=== PATIENT | female | born 1955 | race Caucasian/White ===

== ENCOUNTER 2017-05-26 07:39 | Emergency (ER) | payer MEDICAID ==
--- NOTE | 2017-05-26 09:10 | RADIOLOGY REPORT (SQ) ---
EXAM DESCRIPTION: CERV SP 3 VIEW OR LESS COMPLETED DATE/TIME: 05/26/2017 8:53 am REASON FOR STUDY: fall, pain COMPARISON: None. NUMBER OF VIEWS: Three views. TECHNIQUE: AP, lateral and odontoid radiographic images acquired of the cervical spine. LIMITATIONS: Limited visualization inferior to C6. FINDINGS: Disc space narrowing and osteophyte formation C5-6 and C6- 7. Grade 1 anterolisthesis of C4 relative to C5. No prevertebral swelling. IMPRESSION: Cervical disc disease. Malalignment. TECHNICAL DOCUMENTATION: JOB ID: [id number] [employer]- All Rights Reserved
--- NOTE | 2017-05-26 09:16 | RADIOLOGY REPORT (SQ) ---
EXAM DESCRIPTION: KNEE LEFT 4 VIEW COMPLETED DATE/TIME: 05/26/2017 8:53 am REASON FOR STUDY: fall, pain COMPARISON: None. NUMBER OF VIEWS: Four views. TECHNIQUE: AP, lateral, and both oblique radiographic images acquired of the left knee. LIMITATIONS: None. FINDINGS: Cortical defects along the medial margin of the femoral component of total knee arthroplas ty. Irregular medial margin of the tibial component. No displaced fracture. IMPRESSION: Probable degenerative change however cannot exclude nondisplaced fracture medial distal femur. TECHNICAL DOCUMENTATION: JOB ID: [id number] [employer]- All Rights Reserved
--- NOTE | 2017-05-26 09:20 | RADIOLOGY REPORT (SQ) ---
EXAM DESCRIPTION: T SPINE AP/LAT COMPLETED DATE/TIME: 05/26/2017 8:53 am REASON FOR STUDY: fall, pain COMPARISON: Thoracic spine plain films same date NUMBER OF VIEWS: Two views. TECHNIQUE: AP and lateral radiographic images acquired of the thoracic spine. LIMITATIONS: None. FINDINGS: MINERALIZATION: Osteopenic ALIGNMENT: Normal. No scoliosis. VERTEBRAE: No fracture or bone lesion. Maintained height, normal segmentation. DISCS: Multilevel disc space loss of height with bulky anterior and rightward thoracic osteophytes. HARDWARE: None in the spine. MEDIASTINUM AND SOFT TISSUES: Normal heart size and aortic contour. No soft tissue abnormality. VISUALIZED LUNG BARKER: Clear. OTHER: No other significant finding. IMPRESSION: No acute findings TECHNICAL DOCUMENTATION: JOB ID: [id number] [employer]- All Rights Reserved
--- NOTE | 2017-05-26 09:30 | RADIOLOGY REPORT (SQ) ---
EXAM DESCRIPTION: SHOULDER LEFT 2 OR MORE VIEWS COMPLETED DATE/TIME: 05/26/2017 8:53 am REASON FOR STUDY: fall, pain COMPARISON: None. NUMBER OF VIEWS: Three views. TECHNIQUE: Internal rotation, external rotation, and Y view images acquired of the left shoulder. LIMITATIONS: None. FINDINGS: Intact reverse shoulder arthroplasty. No acute fracture. Visualize lungs are clear. IMPRESSION: NO RADIOGRAPHIC EVIDENCE OF ACUTE INJURY. TECHNICAL DOCUMENTATION: JOB ID: [id number] [employer]- All Rights Reserved
--- NOTE | 2017-05-26 09:34 | ER Document Report ---
ED Fall - General Chief Complaint: Fall Stated Complaint: FALL Time Seen by Provider: 05/26/17 08:11 Mode of Arrival: Wheelchair Information source: Patient Notes: Patient is a 62-year-old female who presents to the ER today for tiredness, left hip pain, left knee pain, left shoulder pain and neck pain after a fall yesterday afternoon. Patient states that she tripped over the cord to a portable fan in her room yesterday and fell mainly on her left side. She does not remember if she hit her head or she lost consciousness. She denies any nausea or vomiting, blurred vision. Daughter states that she has been mildly confused and very tired which is unlike the patient. Patient has had a left shoulder replacement and is concerned about that joint. Patient is not on any blood thinners. TRAVEL OUTSIDE OF THE [place] IN LAST 30 DAYS: No - Related data Allergies/Adverse Reactions: No Known Allergies Allergy (Verified 05/26/17 07:48) Past Medical History - General Information source: Patient - Social History Smoking Status: Unknown if Ever Smoked Patient has suicidal ideation: No Patient has homicidal ideation: No Renal/ Medical History: Denies: Hx Peritoneal Dialysis Past Surgical History: Reports: Hx Orthopedic Surgery Review of Systems - Review of Systems Constitutional: No symptoms reported EENT: No symptoms reported Cardiovascular: No symptoms reported Respiratory: No symptoms reported Gastrointestinal: No symptoms reported Genitourinary: No symptoms reported Female Genitourinary: No symptoms reported Musculoskeletal: See HPI Skin: No symptoms reported Hematologic/Lymphatic: No symptoms reported Neurological/Psychological: See HPI Physical Exam - Vital signs Vitals: Temp Pulse Resp BP Pulse Ox 97.6 F 71 16 148/79 H 99 05/26/17 07:45 05/26/17 07:45 05/26/17 07:45 05/26/17 07:45 05/26/17 07:45 - Notes Notes: PHYSICAL EXAMINATION: GENERAL: appears tired, but in no acute distress. HEAD: Atraumatic, normocephalic. EYES: Pupils equal round and reactive to light, extraocular movements intact, sclera anicteric, conjunctiva are normal. NECK: Normal range of motion, supple without lymphadenopathy LUNGS: CTAB and equal. No wheezes rales or rhonchi. HEART: Regular rate and rhythm without murmurs ABDOMEN: Soft, no tenderness. No guarding, no rebound BACK: Mild cervical vertebral tenderness, normal ROM GI/: no CVA tenderness EXTREMITIES: Mildly tender over the left anterior knee, left lateral hip, left posterior shoulder and cervical spine, normal range of motion, no pitting edema. No cyanosis. NEUROLOGICAL: Alert and oriented 3, able to answer questions appropriately Without delay, Cranial nerves grossly intact. Normal sensory/motor exams. Good and equal strength bilaterally, Kernig and Brudzinski's signs negative, Romberg' s test normal, normal heel to ballard testing PSYCH: Normal mood, normal affect. SKIN: Warm, Dry, normal turgor, no rashes or lesions noted Course - Re-evaluation Re-evalutation: 05/26/17 13:56 X-ray of the left knee, left hip, thoracic spine, cervical spine, left shoulder and CT of the head all negative for any acute pathology. It could not be completely ruled out that she may have a nondisplaced fracture of the distal femur and the left knee x-ray, however unlikely. Radiologist reports it as degenerative changes. I did place her in a knee immobilizer brace and give her crutches and have her follow-up with orthopedics for this. Lab work is unremarkable today including a normal white blood cell count and normal electrolytes. Daughter is happy to take patient home. - Vital Signs Vital signs: Temp Pulse Resp BP Pulse Ox 97.6 F 69 16 140/88 H 100 05/26/17 11:46 05/26/17 11:46 05/26/17 11:46 05/26/17 11:46 05/26/17 11:46 - Laboratory Result Diagrams: 05/26/17 09:52 05/26/17 09:52 Laboratory results interpreted by me: 05/26/17 05/26/17 05/26/17 09:52 09:52 10:07 RDW 15.1 H Glucose 146 H Total Protein 6.1 L Urine Ketones TRACE H Discharge - Discharge Clinical Impression: Left hip pain Fall Qualifiers: Encounter type: initial encounter Qualified Code(s): W19.XXXA - Unspecified fall, initial encounter Left knee pain Qualifiers: Chronicity: acute Qualified Code(s): M25.562 - Pain in left knee Left shoulder pain Qualifiers: Chronicity: acute Qualified Code(s): M25.512 - Pain in left shoulder Head injury Qualifiers: Encounter type: initial encounter Qualified Code(s): S09.90XA - Unspecified injury of head, initial encounter Condition: Stable Disposition: HOME, SELF-CARE Additional Instructions: Return immediately for any new or worsening symptoms. Follow up with primary care provider, call tomorrow to make followup appointment. Prescriptions: Cyclobenzaprine HCl [Flexeril 10 mg Tablet] 10 mg PO TIDP PRN #15 tab PRN Reason: Forms: Parent Work Note Referrals: ANDREW TAMEZ PA-C [Primary Care Provider] - Follow up as needed JUAN MATTSON MD [ACTIVE STAFF] - Follow up as needed
[2017-05-26 10:18] LABS: ABSOLUTE BASOPHILS # (AUTO) 0.1 10^3/uL (0.0-0.2); ABSOLUTE EOSINOPHILS # (AUTO) 0.2 10^3/uL (0.0-0.6); ABSOLUTE LYMPHOCYTES (AUTO) 1.1 10^3/uL (0.5-4.7); ABSOLUTE MONOCYTES (AUTO) 0.6 10^3/uL (0.1-1.4); ABSOLUTE NEUT (AUTO) 4.3 10^3/uL (1.7-8.2); BASOPHILS % (AUTO) 0.8 % (0-2); HEMATOCRIT 36.2 % (36.0-47.0); HEMOGLOBIN 12.1 g/dL (12.0-15.5); HGB HCT DIFFERENCE 0.1; LYMPHOCYTES % (AUTO) 17.3 % (13-45); MEAN CORPUSCULAR HEMOGLOBIN 27.3 pg (27.0-33.4); MEAN CORPUSCULAR HGB CONC 33.3 g/dL (32.0-36.0); MEAN CORPUSCULAR VOLUME 82 fl (80-97); MONOCYTES % (AUTO) 8.9 % (3-13); RED BLOOD COUNT 4.41 10^6/uL (3.72-5.28); RED CELL DISTRIBUTION WIDTH 15.1 % (11.5-14.0); WHITE BLOOD COUNT 6.2 10^3/uL (4.0-10.5)
[2017-05-26 10:23] LABS: APPEARANCE,URINE CLEAR; BILIRUBIN,URINE NEGATIVE (NEGATIVE); GLUCOSE, URINE NEGATIVE (NEGATIVE); KETONES,URINE TRACE mg/dL (NEGATIVE); LEUKOCYTE ESTERASE,URINE NEGATIVE (NEGATIVE); NITRITE,URINE NEGATIVE (NEGATIVE); PROTEIN,URINE NEGATIVE (NEGATIVE); URINE SPECIFIC GRAVITY 1.003; UROBILINOGEN,URINE NEGATIVE mg/dL (<2.0)
[2017-05-26 10:28] LABS: ALANINE AMINOTRANSFERASE 29 U/L (9-52); ALBUMIN 3.5 g/dL (3.5-5.0); ALKALINE PHOSPHATASE 92 U/L (38-126); ANION GAP 10 (5-19); ASPARTATE AMINO TRANSFERASE 24 U/L (14-36); BILIRUBIN,DIRECT 0.3 mg/dL (0.0-0.4); BILIRUBIN,TOTAL 0.4 mg/dL (0.2-1.3); BLOOD UREA NITROGEN 18 mg/dL (7-20); CALCIUM 8.9 mg/dL (8.4-10.2); CARBON DIOXIDE 30 mmol/L (22-30); CHLORIDE 103 mmol/L (98-107); CREATININE RESULT 0.92 mg/dL (0.52-1.25); GLUCOSE 146 mg/dL (75-110); POTASSIUM 4.3 mmol/L (3.6-5.0); SODIUM 142.6 mmol/L (137-145); TOTAL PROTEIN 6.1 g/dL (6.3-8.2)
--- NOTE | 2017-05-26 10:53 | RADIOLOGY REPORT (SQ) ---
EXAM DESCRIPTION: CT HEAD WITHOUT COMPLETED DATE/TIME: 05/26/2017 10:38 am REASON FOR STUDY: fall, confusion COMPARISON: None. TECHNIQUE: Axial images acquired through the brain without intravenous contrast. Images reviewed wi th bone, brain and subdural windows. Images stored on PACS. All CT scanners at this facility use dose modulation, iterative reconstruction, and/or weight based d osing when appropriate to reduce radiation dose to as low as reasonably achievable (ALARA). [facility]: Dose Right [facility]: CareDose [facility]: Dose Right [facility]: Teradose 4D [facility]: Smart Soonr RADIATION DOSE: Up-to-date CT equipment and radiation dose reduction techniques were employed. CTDIv ol: 64.6 mGy. DLP: 1163 mGy-cm. mGy. LIMITATIONS: None. FINDINGS: VENTRICLES: Normal size and contour. CEREBRUM: No masses. No hemorrhage. No midline shift. No evidence for acute infarction. Normal gra y/white matter differentiation. No areas of low density in the white matter. CEREBELLUM: No masses. No hemorrhage. No alteration of density. No evidence for acute infarction. EXTRAAXIAL SPACES: No fluid collections. No masses. ORBITS AND GLOBE: No intra- or extraconal masses. Normal contour of globe without masses. CALVARIUM: No fracture. PARANASAL SINUSES: No fluid or mucosal thickening. SOFT TISSUES: No mass or hematoma. OTHER: No other significant finding. IMPRESSION: NORMAL BRAIN CT WITHOUT CONTRAST. EVIDENCE OF ACUTE STROKE: NO. COMMENT: Quality ID # [id number]: Final reports with documentation of one or more dose reduction techniques (e.g., Automated exposure control, adjustment of the mA and/or kV according to patient size, use of iterative reconstruction technique) TECHNICAL DOCUMENTATION: JOB ID: [id number]- All Rights Reserved
--- NOTE | 2017-05-26 11:30 | RADIOLOGY REPORT (SQ) ---
EXAM DESCRIPTION: HIP LEFT AP/LATERAL COMPLETED DATE/TIME: 05/26/2017 11:20 am REASON FOR STUDY: fall, pain COMPARISON: None. NUMBER OF VIEWS: Two views. TECHNIQUE: AP pelvis and additional frog-leg view of the left hip. LIMITATIONS: None. FINDINGS: MINERALIZATION: Normal. LEFT HIP: No fracture or dislocation. No worrisome bone lesions. RIGHT HIP: No fracture or dislocation. No worrisome bone lesions. PUBIS AND ISCHIUM: No fracture. PELVIS: No fracture. SACRUM: No fracture or dislocation. No worrisome bone lesions. LOWER LUMBAR SPINE: Bulky bilateral facet arthropathy at L4-5 and L5-S1. SOFT TISSUES: No findings. OTHER: No other significant finding. IMPRESSION: No acute changes left hip. No fracture TECHNICAL DOCUMENTATION: JOB ID: [id number]- All Rights Reserved
[2017-05-26 11:46] VITALS: BP 140/88
== END 2017-05-26 11:46 | disposition home or self-care (01) ==
LOC: ER 07:39
DX: S09.90XA Unspecified injury of head, initial encounter (principal); M25.552 Pain in left hip; M25.562 Pain in left knee; M25.512 Pain in left shoulder; W01.0XXA Fall on same level from slipping, tripping and stumbling without subsequent striking against object, initial encounter
CPT/HCPCS: 99284; 36415; 85025; 80053; 81001; 72040; 73502; 73562; 73030; 72070; 70450; L1830

== ENCOUNTER 2017-09-30 17:31 | Observation (INO) | payer MEDICAID ==
--- NOTE | 2017-09-30 19:04 | RADIOLOGY REPORT (SQ) ---
EXAM DESCRIPTION: CHEST PA/LAT COMPLETED DATE/TIME: 09/30/2017 6:49 pm REASON FOR STUDY: cough COMPARISON: None. EXAM PARAMETERS: NUMBER OF VIEWS: two views TECHNIQUE: Digital Frontal and Lateral radiographic views of the chest acquired. RADIATION DOSE: NA LIMITATIONS: none FINDINGS: LUNGS AND PLEURA: Linear atelectasis versus scar in the right lung. No lobar infiltrate, masses or pneumothorax. No pleural effusion. MEDIASTINUM AND HILAR STRUCTURES: No masses or contour abnormalities. HEART AND VASCULAR STRUCTURES: Heart normal size. No evidence for failure. BONES: No acute findings. Degenerative changes in the spine. HARDWARE: Left shoulder prosthesis. OTHER: No other significant finding. IMPRESSION: LINEAR ATELECTASIS VERSUS SCAR IN THE RIGHT LUNG. TECHNICAL DOCUMENTATION: JOB ID: [id number] [employer]- All Rights Reserved Reading location - IP/workstation name: [email or web address]
[2017-09-30 19:17] LABS: APPEARANCE,URINE CLEAR; BILIRUBIN,URINE NEGATIVE (NEGATIVE); COLOR,URINE STRAW; GLUCOSE, URINE NEGATIVE (NEGATIVE); KETONES,URINE NEGATIVE (NEGATIVE); LEUKOCYTE ESTERASE,URINE NEGATIVE (NEGATIVE); NITRITE,URINE NEGATIVE (NEGATIVE); PROTEIN,URINE NEGATIVE (NEGATIVE); URINE SPECIFIC GRAVITY 1.005; UROBILINOGEN,URINE NEGATIVE mg/dL (<2.0)
[2017-09-30 19:17] LABS: ABSOLUTE EOSINOPHILS # (AUTO) 0.2 10^3/uL (0.0-0.6); ABSOLUTE LYMPHOCYTES (AUTO) 1.1 10^3/uL (0.5-4.7); ABSOLUTE MONOCYTES (AUTO) 0.4 10^3/uL (0.1-1.4); ABSOLUTE NEUT (AUTO) 1.2 10^3/uL (1.7-8.2); BASOPHILS % (AUTO) 0.6 % (0-2); EOSINOPHILS % (AUTO) 7.1 % (0-6); HEMATOCRIT 37.1 % (36.0-47.0); LYMPHOCYTES % (AUTO) 37.8 % (13-45); MEAN CORPUSCULAR HEMOGLOBIN 26.1 pg (27.0-33.4); MEAN CORPUSCULAR HGB CONC 32.4 g/dL (32.0-36.0); MEAN CORPUSCULAR VOLUME 81 fl (80-97); MONOCYTES % (AUTO) 12.4 % (3-13); PLATELET COUNT 201 10^3/uL (150-450); RED CELL DISTRIBUTION WIDTH 15.5 % (11.5-14.0); SEGMENTED NEUTROPHILS % (AUTO) 42.1 % (42-78); TOTAL CELLS COUNTED % (AUTO) 100 %; WHITE BLOOD COUNT 2.9 10^3/uL (4.0-10.5)
[2017-09-30 19:19] LABS: ANION GAP 6 (5-19); BLOOD UREA NITROGEN 15 mg/dL (7-20); CALCIUM 8.5 mg/dL (8.4-10.2); CARBON DIOXIDE 31 mmol/L (22-30); CHLORIDE 103 mmol/L (98-107); GLUCOSE 92 mg/dL (75-110); POTASSIUM 4.8 mmol/L (3.6-5.0); SODIUM 139.9 mmol/L (137-145)
[2017-09-30] MEDS ORDERED: METHYLPREDNISOLONE INJ 125 MG/2 ML SDV IV ONE (19:49)
[2017-09-30] MEDS ORDERED: IPRATROPIUM/ALBUTEROL 0.5-2.5 MG/3 ML AMPUL NEB ONE ×3 (19:49→22:52)
--- NOTE | 2017-09-30 19:55 | ER Document Report ---
ED Flu Like - General Mode of Arrival: Ambulatory Information source: Patient, Friend TRAVEL OUTSIDE OF THE [place] IN LAST 30 DAYS: No - HPI Patient complains to provider of: Shortness of Breath Onset: Other - 5 days ago Associated symptoms: Other - see notes above <DIONNA PINEDA - Last Filed: 09/30/17 22:32> <SORONN RAJENDRA - Last Filed: 10/01/17 03:42> - General Chief Complaint: Flu Symptoms Stated Complaint: WEAKNESS Notes: 62 year old female presents to the ED complaining of shortness of breath, chest congestion, and coughing that started 5 days ago and has stayed constant. Patient reports that she has taken over the counter Theraflu to no relief. Patient's friend was diagnosed with Type B influenza 4 days ago and has been around the patient. Patient denies history of smoking. (DIONNA PINEDA) - Related Data Allergies/Adverse Reactions: No Known Allergies Allergy (Verified 05/26/17 07:48) Past Medical History - General Information source: Patient - Social History Smoking Status: Never Smoker Chew tobacco use (# tins/day): No Frequency of alcohol use: Occasional Drug Abuse: None Family History: Reviewed & Not Pertinent Patient has suicidal ideation: No Patient has homicidal ideation: No Endocrine Medical History: Reports: Hx Diabetes Mellitus Type 2 - pre-diabetes Renal/ Medical History: Denies: Hx Peritoneal Dialysis Psychiatric Medical History: Reports: Hx Bipolar Disorder Past Surgical History: Reports: Hx Orthopedic Surgery - bilat knee, shoulder <DIONNA PINEDA - Last Filed: 09/30/17 22:32> Review of Systems - Review of Systems Constitutional: No symptoms reported EENT: No symptoms reported Cardiovascular: No symptoms reported Respiratory: See HPI, Cough, Short of breath Gastrointestinal: No symptoms reported Genitourinary: No symptoms reported Female Genitourinary: No symptoms reported Musculoskeletal: No symptoms reported Skin: No symptoms reported Hematologic/Lymphatic: No symptoms reported Neurological/Psychological: No symptoms reported -: Yes All other systems reviewed and negative <DIONNA PINEDA - Last Filed: 09/30/17 22:32> Physical Exam - General General appearance: Alert, Other - appears uncomfortable In distress: None - HEENT Head: Normocephalic, Atraumatic Eyes: Normal Extraocular movements intact: Yes Pupils: PERRL - Respiratory Respiratory status: No respiratory distress Breath sounds: Wheezing - diffuse expiratory wheezing. No: Normal - Cardiovascular Rhythm: Regular Heart sounds: Normal auscultation - Abdominal Inspection: Normal - Back Back: Normal - Extremities General upper extremity: Normal inspection, Normal ROM General lower extremity: Normal inspection, Normal ROM - Neurological Neuro grossly intact: Yes - Psychological Associated symptoms: Normal affect, Normal mood - Skin Skin Temperature: Warm Skin Moisture: Dry Skin Color: Normal <DIONNA PINEDA - Last Filed: 09/30/17 22:32> - Vital signs Vitals: Temp Pulse Resp BP Pulse Ox 98.3 F 64 18 160/70 H 96 09/30/17 17:39 09/30/17 17:39 09/30/17 17:39 09/30/17 17:39 09/30/17 17:39 Course - Laboratory Result Diagrams: 09/30/17 17:15 09/30/17 17:15 - Consults Dr. Betancourt Time consulted: 22:28 <DIONNA PINEDA - Last Filed: 09/30/17 22:32> - Laboratory Result Diagrams: 09/30/17 17:15 09/30/17 17:15 - Diagnostic Test Radiology reviewed: Reports reviewed <RONN RIZZO - Last Filed: 10/01/17 03:42> - Re-evaluation Re-evalutation: Patient is a 62-year-old female who comes in with difficulty breathing. Patient has no cardiac or pulmonary issues. Patient has had an upper respiratory infection over the last few days and felt like she had a fever at home. Family member with recent diagnosis of influenza B. Acute findings on chest x-ray. Patient has had wheezing despite nebulizer treatments, Solu-Medrol , and magnesium. Patient is also hypoxic with ambulation. Discussed with the hospitalist service. Patient will be kept at this time for observation due to hypoxia and bronchospasm. Likely influenza. Patient is agreeable to admission. Stable time of admission to telemetry. (RONN RIZZO) - Vital Signs Vital signs: Temp Pulse Resp BP Pulse Ox 98.4 F 72 23 H 105/67 97 09/30/17 22:04 10/01/17 01:59 10/01/17 01:59 09/30/17 22:04 10/01/17 01:59 - Laboratory Laboratory results interpreted by me: 09/30/17 09/30/17 17:15 17:15 WBC 2.9 L MCH 26.1 L RDW 15.5 H Eosinophils % 7.1 H Absolute Neutrophils 1.2 L Carbon Dioxide 31 H - Consults Dr. Betancourt Reason for consultation: 09/30/17 22:[address] Betancourt and agrees to admit the patient under his care. (DIONNA PINEDA) Critical Care Note - Critical Care Note Total time excluding time spent on procedures (mins): 45 - Evaluation and management of respiratory distress, management of bronchospasm, hypoxia, coordination of admission, counseling of patient and family, multiple re- evaluations <RONN RIZZO - Last Filed: 10/01/17 03:42> Discharge <DIONNA PINEDA - Last Filed: 09/30/17 22:32> - Discharge Admitting Provider: Beulah Betancourt Unit Admitted: Telemetry <RONN RIZZO - Last Filed: 10/01/17 03:42> - Discharge Clinical Impression: Bronchitis, acute, with bronchospasm, Influenza Condition: Stable Disposition: ADMITTED OBSERVATION Scribe Attestation: 10/01/17 03:41 I personally performed the services described in the documentation, reviewed and edited the documentation which was dictated to the scribe in my presence, and it accurately records my words and actions. (RONN RIZZO) Scribe Documentation - Scribe Written by Adrianaibe:: Lala Singletary, 09/30/20171954 acting as scribe for :: So <DIONNA PINEDA - Last Filed: 09/30/17 22:32>
[2017-09-30] MEDS: MAGNESIUM SULFATE/D5W 1 GM/100 ML RTUPB IV SCH ×2 (20:07→21:54)
[2017-09-30] MEDS ORDERED: ONDANSETRON HCL INJ/PF 4 MG/2 ML SDV IV ONE (20:27)
[2017-09-30] MEDS ORDERED: ACETAMINOPHEN 325 MG TABLET PO ONE (20:27)
[2017-09-30] MEDS ORDERED: NORMAL SALINE 1000 ML 1,000 ML IV ONE (22:11)
[2017-09-30] MEDS ORDERED: GUAIFENESIN SYRP 200 MG/10 ML UDC PO PRN (22:32)
[2017-09-30] MEDS ORDERED: HYDRALAZINE HCL INJ/PF 20 MG/1 ML SDV IV PRN (22:32)
[2017-09-30] MEDS ORDERED: ACETAMINOPHEN 325 MG TABLET PO PRN (22:32)
[2017-09-30] MEDS ORDERED: CHLORPHENIRAMINE MALEATE 4 MG TABLET PO ONE (22:32)
[2017-09-30] MEDS ORDERED: IPRATROPIUM/ALBUTEROL 0.5-2.5 MG/3 ML AMPUL NEB PRN (22:32)
[2017-09-30] MEDS ORDERED: KETOROLAC TROMETHAMINE INJ/PF 30 MG/1 ML SDV IV PRN (22:32)
[2017-09-30] MEDS ORDERED: FLUTICASONE NASAL SPRAY 50 MCG/SPRY 120 SPRAY/16 GM NASL ONE (22:45)
[2017-09-30] MEDS ORDERED: LEVOFLOXACIN 750 MG/D5W RTU 750 MG/150 ML RTUPB IV ONE (23:00)
[2017-09-30] MEDS ORDERED: PREDNISONE 20 MG TABLET PO ONE (23:00)
[2017-10-01] MEDS ORDERED: CHLORPHENIRAMINE MALEATE 4 MG TABLET ONE (01:02)
[2017-10-01] MEDS ORDERED: FLUTICASONE NASAL SPRAY 50 MCG/SPRY 120 SPRAY/16 GM ONE (01:02)
[2017-10-01] MEDS: IPRATROPIUM/ALBUTEROL 0.5-2.5 MG/3 ML AMPUL NEB SCH ×2 (01:58→07:53)
--- NOTE | 2017-10-01 04:47 | PDOC H&P ---
History of Present Illness Admission Date/PCP: 09/30/17 22:58 Patient complains of: Shortness of breath and cough History of Present Illness: JACKIE LOPEZ is a 62 year old female with a past medical history of diabetes and obesity. Presents with 5 days of shortness of breath and nonproductive cough. In the emergency room she is found to have tachypnea, hypoxia, rhonchi, a left-sided infiltrate with atelectasis. She started on empiric antibiotics and for the hospitalist for admission. Patient denies recent antibiotic use admits exposure to influenza B 1 week ago. Patient admits feeling significantly improved with supplemental oxygen and albuterol with Atrovent. Past Medical History Endocrine Medical History: Reports: Diabetes Mellitus Type 2 - pre-diabetes Psychiatric Medical History: Reports: Bipolar Disorder Past Surgical History Past Surgical History: Reports: Orthopedic Surgery - bilat knee, shoulder Social History Information Source: Patient Lives with: Family Smoking Status: Never Smoker Frequency of Alcohol Use: None Drugs: None - Advance Directive Resuscitation Status: Full Code Family History Family History: COPD Parental Family History Reviewed: Yes Children Family History Reviewed: Yes Sibling(s) Family History Reviewed.: Yes Medication/Allergy Home Medications: Cyclobenzaprine HCl [Flexeril 10 mg Tablet] 10 mg PO TIDP PRN #15 tab 05/26/17 Allergies/Adverse Reactions: No Known Allergies Allergy (Verified 05/26/17 07:48) Review of Systems Constitutional: PRESENT: as per HPI. ABSENT: chills, fever(s), headache(s), weight gain, weight loss Eyes: ABSENT: visual disturbances Ears: ABSENT: hearing changes Cardiovascular: ABSENT: chest pain, dyspnea on exertion, edema, orthropnea, palpitations Respiratory: ABSENT: cough, hemoptysis Gastrointestinal: ABSENT: abdominal pain, constipation, diarrhea, hematemesis, hematochezia, nausea, vomiting Genitourinary: ABSENT: dysuria, hematuria Musculoskeletal: ABSENT: joint swelling Integumentary: ABSENT: rash, wounds Neurological: ABSENT: abnormal gait, abnormal speech, confusion, dizziness, focal weakness, syncope Psychiatric: ABSENT: anxiety, depression, homidical ideation, suicidal ideation Endocrine: ABSENT: cold intolerance, heat intolerance, polydipsia, polyuria Hematologic/Lymphatic: ABSENT: easy bleeding, easy bruising Physical Exam Vital Signs: Temp Pulse Resp BP Pulse Ox 98.4 F 72 23 H 105/67 97 03/01/18 22:04 10/01/17 01:59 10/01/17 01:59 09/30/17 22:04 10/01/17 01:59 General appearance: PRESENT: cooperative, disheveled, mild distress, morbidly obese Head exam: PRESENT: atraumatic, normocephalic Eye exam: PRESENT: conjunctiva pink, EOMI, PERRLA. ABSENT: scleral icterus Ear exam: PRESENT: normal external ear exam Mouth exam: PRESENT: moist, tongue midline Neck exam: ABSENT: carotid bruit, JVD, lymphadenopathy, thyromegaly Respiratory exam: PRESENT: accessory muscle use, crackles, decreased breath sounds, prolonged expiratory phas, retraction, rhonchi, wheezes. ABSENT: clear to auscultation yury Cardiovascular exam: PRESENT: RRR. ABSENT: diastolic murmur, rubs, systolic murmur Pulses: PRESENT: normal dorsalis pedis pul Vascular exam: PRESENT: normal capillary refill GI/Abdominal exam: PRESENT: normal bowel sounds, soft. ABSENT: distended, guarding, mass, organolmegaly, rebound, tenderness Rectal exam: PRESENT: deferred Extremities exam: PRESENT: full ROM. ABSENT: calf tenderness, clubbing, pedal edema Neurological exam: PRESENT: alert, awake, oriented to person, oriented to place , oriented to time, oriented to situation, CN II-XII grossly intact. ABSENT: motor sensory deficit Psychiatric exam: PRESENT: appropriate affect, normal mood. ABSENT: homicidal ideation, suicidal ideation Skin exam: PRESENT: dry, intact, warm. ABSENT: cyanosis, rash Results Impressions: Chest X-Ray 09/30/17 18:26 IMPRESSION: LINEAR ATELECTASIS VERSUS SCAR IN THE RIGHT LUNG. Assessment & Plan - Diagnosis (1) Pneumonia Is this a current diagnosis for this admission?: Yes Plan: Initiation of symptoms greater than 5 days ago after influenza exposure. Pneumonia care set deployed, incentive spirometry, oxygen empiric antibiotics with albuterol and Atrovent. CBC and culture (2) Diabetes Is this a current diagnosis for this admission?: Yes Plan: Outpatient regiment with sliding scale insulin - Time Time Spent: 50 to 70 Minutes - Inpatient Certification Medical Necessity: Need Close Monitoring Due to Risk of Patient Decompensation
[2017-10-01] MEDS ORDERED: HEPARIN SOD (PORCINE) 5,000 UNIT/ML 1 ML SYRINGE SUBCUT SCH (06:00)
[2017-10-01 06:19] LABS: ABSOLUTE LYMPHOCYTES (AUTO) 0.3 10^3/uL (0.5-4.7); ABSOLUTE NEUT (AUTO) 2.2 10^3/uL (1.7-8.2); BASOPHILS % (AUTO) 0.2 % (0-2); EOSINOPHILS % (AUTO) 0.2 % (0-6); HEMATOCRIT 36.2 % (36.0-47.0); HEMOGLOBIN 11.6 g/dL (12.0-15.5); LYMPHOCYTES % (AUTO) 10.1 % (13-45); MEAN CORPUSCULAR HEMOGLOBIN 26.2 pg (27.0-33.4); MEAN CORPUSCULAR VOLUME 82 fl (80-97); MONOCYTES % (AUTO) 1.9 % (3-13); PLATELET COUNT 154 10^3/uL (150-450); RED BLOOD COUNT 4.41 10^6/uL (3.72-5.28); RED CELL DISTRIBUTION WIDTH 15.6 % (11.5-14.0); SEGMENTED NEUTROPHILS % (AUTO) 87.6 % (42-78); TOTAL CELLS COUNTED % (AUTO) 100 %; WHITE BLOOD COUNT 2.5 10^3/uL (4.0-10.5)
[2017-10-01 07:44] LABS: BLOOD UREA NITROGEN 16 mg/dL (7-20); CALCIUM 8.4 mg/dL (8.4-10.2); CHLORIDE 103 mmol/L (98-107); POTASSIUM 4.8 mmol/L (3.6-5.0)
[2017-10-01 08:15] LABS: ANION GAP 14 (5-19); CARBON DIOXIDE 20 mmol/L (22-30); GLUCOSE 444 mg/dL (75-110)
[2017-10-01] MEDS ORDERED: PREDNISONE 20 MG TABLET PO SCH (10:00)
[2017-10-01] MEDS ORDERED: GUAIFENESIN 600 MG TABLET.SA PO SCH (10:00)
[2017-10-01] MEDS ORDERED: FLUTICASONE NASAL SPRAY 50 MCG/SPRY 120 SPRAY/16 GM NASL SCH (10:00)
[2017-10-01] MEDS ORDERED: GLUCAGON,HUMAN RECOMB 1 MG INJ IM PRN (10:34)
[2017-10-01] MEDS ORDERED: DEXTROSE 50%-WATER 25 GM/50 ML DISP.SYRIN IV PRN ×2 (10:34)
[2017-10-01] MEDS ORDERED: DEXTROSE 40% GEL 15 GM TUBE PO PRN ×2 (10:34)
[2017-10-01] MEDS ORDERED: INSULIN LISPRO 100 UNIT/ML 3 ML VIAL SUBCUT PRN (10:34)
[2017-10-01] MEDS ORDERED: GLIMEPIRIDE 1 MG TABLET PO ONE (11:00)
[2017-10-01] MEDS ORDERED: INSULIN LISPRO 100 UNIT/ML 3 ML VIAL SUBCUT ONE (11:00)
[2017-10-01] MEDS ORDERED: FUROSEMIDE 20 MG TABLET PO ONE (11:00)
[2017-10-01] MEDS ORDERED: ROPINIROLE HCL 1 MG TABLET PO ONE (11:00)
[2017-10-01 11:57] VITALS: BP 152/59
--- NOTE | 2017-10-01 16:00 | PDOC DISCHARGE SUMMARY ---
General - Admit/Disc Date/PCP Admission Date/Primary Care Provider: 09/30/17 22:58 Discharge Date: 10/01/17 - Discharge Diagnosis (1) Pneumonia Is this a current diagnosis for this admission?: Yes (2) Diabetes Is this a current diagnosis for this admission?: Yes - Additional Information Resuscitation Status: Full Code Prescriptions: Albuterol Sulfate [Ventolin Hfa] 1 - 2 puff IH Q4 PRN #1 hfa.aer.ad PRN Reason: shortness of breath Guaifenesin [Mucinex Sr 600 mg Tablet.sa] 600 mg PO Q12 #30 tablet.sa Levofloxacin [Levaquin 750 mg Tablet] 750 mg PO DAILY #5 tablet Prednisone [Deltasone 20 mg Tablet] 40 mg PO DAILY 4 Days tablet Home Medications: Acetaminophen [Tylenol 325 mg Tablet] 650 mg PO Q6HP PRN tablet 10/01/17 Albuterol Sulfate [Ventolin Hfa] 1 - 2 puff IH Q4 PRN #1 hfa.aer.ad 10/01/17 Buspirone HCl [Buspar 5 mg Tablet] 7.5 mg PO DAILY 10/01/17 Celecoxib [Celebrex 200 mg Capsule] 200 mg PO Q12 10/01/17 Desvenlafaxine Succinate [Pristiq] 50 mg PO DAILY 10/01/17 Furosemide [Lasix 20 mg Tablet] 20 mg PO Q2D 10/01/17 Gabapentin [Neurontin 300 mg Capsule] 300 mg PO Q12 10/01/17 Glimepiride [Amaryl 1 mg Tablet] 1 mg PO QAM 10/01/17 Guaifenesin [Mucinex Sr 600 mg Tablet.sa] 600 mg PO Q12 #30 tablet.sa 10/01/17 Levofloxacin [Levaquin 750 mg Tablet] 750 mg PO DAILY #5 tablet 10/01/17 Prednisone [Deltasone 20 mg Tablet] 40 mg PO DAILY 4 Days tablet 10/01/17 Ropinirole HCl [Requip] 1 mg PO DAILY 10/01/17 Trazodone HCl [Desyrel] 150 mg PO QHS 10/01/17 History of Present Illness History of Present Illness: Per H&P by Dr. Betancourt: JACKIE LOPEZ is a 62 year old female with a past medical history of diabetes and obesity. She presents with 5 days of shortness of breath and nonproductive cough. In the emergency room she is found to be tachypneic, hypoxia, rhonchi, and a left-sided infiltrate with atelectasis. She is started on empiric antibiotics and for the hospitalist for admission. Patient denies recent anabolic use admits to exposure to influenza B 1 week ago. Patient admits feeling significantly improved with supplemental oxygen and albuterol with Atrovent. Hospital Course Hospital Course: Patient was admitted on 09/30/17 with a complaint of dyspnea, tachypnea, and hypoxia of 89% on room air. Chest x-ray revealed a right linear infiltrate versus atelectasis. The patient received magnesium 1 g IV, DuoNeb, and IV Solu- Medrol per emergency department. Blood cultures were obtained and are pending at time of dictation. She was empirically placed on IV Levaquin for coverage of a community-acquired pneumonia. She initially required supplemental oxygen at 2 L/min but was quickly weaned to room air overnight and by the following morning was maintaining oxygen saturations while ambulating on room air. The patient reported that her cough and dyspnea have resolved. Her only complaint at present is fatigue and she requests to be discharged home. The patient is also noted to have elevated blood sugars to 470 secondary to IV Solu-Medrol. The patient's hemoglobin A1c was assessed to be 6.3%. She was provided Humalog for correction prior to discharge. The patient was offered the option of remaining inpatient for additional observation and management of her pneumonia. She elected to be discharged home with self-care. She was provided prescriptions for an albuterol inhaler, Mucinex, Levaquin, and prednisone. She was directed to follow-up with her primary care provider within 1 week. Physical Exam Vital Signs: Temp Pulse Resp BP Pulse Ox 98.9 F 80 18 152/59 H 95 10/01/17 11:54 10/01/17 11:54 10/01/17 11:54 10/01/17 11:54 10/01/17 11:54 Intake & Output 09/30/17 10/01/17 10/02/17 06:59 06:59 06:59 Intake Total 40 Balance 40 General appearance: PRESENT: no acute distress, obese, well-developed, well- nourished Head exam: PRESENT: atraumatic, normocephalic Eye exam: PRESENT: conjunctiva pink, EOMI, PERRLA. ABSENT: scleral icterus Ear exam: PRESENT: normal external ear exam Mouth exam: PRESENT: moist, tongue midline Neck exam: ABSENT: carotid bruit, JVD, lymphadenopathy, thyromegaly Respiratory exam: PRESENT: clear to auscultation yury, rhonchi - occasional, symmetrical, unlabored. ABSENT: rales, wheezes Cardiovascular exam: PRESENT: RRR, +S1, +S2. ABSENT: diastolic murmur, rubs, systolic murmur, tachycardia Pulses: PRESENT: normal dorsalis pedis pul Vascular exam: PRESENT: normal capillary refill GI/Abdominal exam: PRESENT: normal bowel sounds, soft. ABSENT: distended, guarding, mass, organolmegaly, rebound, tenderness Rectal exam: PRESENT: deferred Extremities exam: PRESENT: full ROM. ABSENT: calf tenderness, clubbing, pedal edema Neurological exam: PRESENT: alert, awake, oriented to person, oriented to place , oriented to time, oriented to situation, CN II-XII grossly intact. ABSENT: motor sensory deficit Psychiatric exam: PRESENT: appropriate affect, normal mood. ABSENT: homicidal ideation, suicidal ideation Skin exam: PRESENT: dry, intact, warm. ABSENT: cyanosis, rash Results Laboratory Results: 10/01/17 06:05 10/01/17 07:11 10/01/17 10/01/17 10/01/17 06:05 06:05 07:11 WBC 2.5 L RBC 4.41 Hgb 11.6 L Hct 36.2 MCV 82 MCH 26.2 L MCHC 32.0 RDW 15.6 H Plt Count 154 Seg Neutrophils % 87.6 H Lymphocytes % 10.1 L Monocytes % 1.9 L Eosinophils % 0.2 Basophils % 0.2 Absolute Neutrophils 2.2 Absolute Lymphocytes 0.3 L Absolute Monocytes 0.0 L Absolute Eosinophils 0.0 Absolute Basophils 0.0 Sodium Cancelled 137.0 Potassium Cancelled 4.8 Chloride Cancelled 103 Carbon Dioxide Cancelled 20 L D Anion Gap Cancelled 14 BUN Cancelled 16 Creatinine Cancelled 0.97 Est GFR ( Amer) Cancelled > 60 Est GFR (Non-Af Amer) Cancelled 58 L Glucose Cancelled 444 H* Calcium Cancelled 8.4 Impressions: Chest X-Ray 09/30/17 18:26 IMPRESSION: LINEAR ATELECTASIS VERSUS SCAR IN THE RIGHT LUNG. Qualifiers - * PATEINT BEING DISCHARGED WITH ANY OF THE FOLLOWING DIAGNOSIS?: No
[2017-10-01] MEDS ORDERED: GABAPENTIN 300 MG CAPSULE PO SCH (22:00)
[2017-10-01] MEDS ORDERED: CELECOXIB 200 MG CAPSULE PO SCH (22:00)
[2017-10-01] MEDS ORDERED: TRAZODONE HCL 50 MG TABLET PO SCH (22:00)
[2017-10-01] MEDS ORDERED: LEVOFLOXACIN 750 MG/D5W RTU 750 MG/150 ML RTUPB IV SCH (22:00)
[2017-10-01] MEDS ORDERED: (PENDING PHARMACY ID) (Trazodone Hcl [Desyrel] 150 MG) PO SCH (22:00)
[2017-10-02] MEDS ORDERED: GLIMEPIRIDE 1 MG TABLET PO SCH (08:00)
[2017-10-02] MEDS ORDERED: ROPINIROLE HCL 1 MG TABLET PO SCH (10:00)
[2017-10-02] MEDS ORDERED: (PENDING PHARMACY ID) (Buspirone Hcl [Buspar 5 Mg Tablet] 7.5 MG) PO SCH (10:00)
[2017-10-02] MEDS ORDERED: (PENDING PHARMACY ID) (Desvenlafaxine Succinate [Pristiq] 50 MG) PO SCH (10:00)
[2017-10-02] MEDS ORDERED: FUROSEMIDE 20 MG TABLET PO SCH (10:00)
[2017-10-03] MEDS ORDERED: FUROSEMIDE 20 MG TABLET PO SCH (10:00)
--- NOTE | 2017-10-03 19:06 | Progress Note ---
Provider Note Provider Note: 10/03 left message to return to ED for repeat blood cultures (2 sets 2 ) Bacillus was isolated in blood culture drawn on 10/01
== END 2017-10-01 11:00 | disposition home or self-care (01) ==
LOC: ER 17:31 → EH 22:58
PROVIDERS: ADMIT Internal Medicine; ATTEND Internal Medicine
DX: J18.9 Pneumonia, unspecified organism (principal); E11.9 Type 2 diabetes mellitus without complications; R06.82 Tachypnea, not elsewhere classified; R09.02 Hypoxemia; A49.9 Bacterial infection, unspecified; Z20.828 Contact with and (suspected) exposure to other viral communicable diseases; Z82.5 Family history of asthma and other chronic lower respiratory diseases
CPT/HCPCS: 94640 ×4; 99291; 96372; 96375; 96365; 96366; 96367; 36415 ×2; 87040; 82962; 85025 ×2; 87077; 80048 ×2; 81001; 83036; 71046; J3490 ×6; J1644; J1815; J2930; J3475; J7512 ×2; J2405; J7030; J1956; J7620 ×2

== ENCOUNTER 2020-05-05 08:19 | Emergency (ER) | payer MEDICARE, MEDICAID ==
[2020-05-05] MEDS ORDERED: NALOXONE HCL INJ 2 MG/2 ML DISP.SYRIN ONE ×3 (08:30→08:38)
[2020-05-05] MEDS ORDERED: NALOXONE HCL INJ/PF 0.4 MG/1 ML SDV ONE (08:31)
[2020-05-05] MEDS ORDERED: NORMAL SALINE 1000 ML 1,000 ML IV ONE (08:44)
[2020-05-05] MEDS ORDERED: NORMAL SALINE 500 ML IV ONE (08:45)
[2020-05-05 09:01] LABS: ABSOLUTE LYMPHOCYTES (AUTO) 0.6 10^3/uL (0.5-4.7); ABSOLUTE MONOCYTES (AUTO) 0.3 10^3/uL (0.1-1.4); ABSOLUTE NEUT (AUTO) 6.2 10^3/uL (1.7-8.2); BASOPHILS % (AUTO) 0.4 % (0-2); EOSINOPHILS % (AUTO) 0.4 % (0-6); HEMATOCRIT 34.2 % (36.0-47.0); HEMOGLOBIN 11.6 g/dL (12.0-15.5); LYMPHOCYTES % (AUTO) 8.4 % (13-45); MEAN CORPUSCULAR HGB CONC 33.8 g/dL (32.0-36.0); MEAN CORPUSCULAR VOLUME 80 fl (80-97); PLATELET COUNT 246 10^3/uL (150-450); RED BLOOD COUNT 4.28 10^6/uL (3.72-5.28); RED CELL DISTRIBUTION WIDTH 14.4 % (11.5-14.0); SEGMENTED NEUTROPHILS % (AUTO) 86.8 % (42-78); TOTAL CELLS COUNTED % (AUTO) 100 %; WHITE BLOOD COUNT 7.1 10^3/uL (4.0-10.5)
[2020-05-05] MEDS ORDERED: NALOXONE HCL INJ 2 MG/2 ML DISP.SYRIN IV ONE ×2 (09:02)
[2020-05-05] MEDS ORDERED: NALOXONE HCL INJ/PF 0.4 MG/1 ML SDV IV ONE (09:02)
[2020-05-05 09:03] LABS: APPEARANCE,URINE CLEAR; BILIRUBIN,URINE NEGATIVE (NEGATIVE); COLOR,URINE YELLOW; GLUCOSE, URINE 50 mg/dL (NEGATIVE); KETONES,URINE TRACE mg/dL (NEGATIVE); LEUKOCYTE ESTERASE,URINE NEGATIVE (NEGATIVE); NITRITE,URINE NEGATIVE (NEGATIVE); PROTEIN,URINE NEGATIVE (NEGATIVE); URINE SPECIFIC GRAVITY 1.014; UROBILINOGEN,URINE NEGATIVE mg/dL (<2.0)
[2020-05-05 09:03] LABS: PROTHROMBIN TIME 12.4 SEC (11.4-15.4)
[2020-05-05 09:05] LABS: VENOUS BLOOD BASE EXCESS 1.7 mmol/L; VENOUS BLOOD HCO3 29.4 mmol/L (20-32); VENOUS BLOOD PH 7.3 (7.30-7.42)
[2020-05-05 09:06] LABS: D-DIMER 2.13 ug/mL (0.00-0.50)
[2020-05-05] MEDS ORDERED: TRANEXAMIC ACID INJ/PF 1,000 MG/10 ML SDV IV STA (09:08)
[2020-05-05 09:09] LABS: ALBUMIN 3.7 g/dL (3.5-5.0); ALKALINE PHOSPHATASE 78 U/L (38-126); ANION GAP 8 (5-19); ASPARTATE AMINO TRANSFERASE 24 U/L (14-36); BILIRUBIN,DIRECT 0.4 mg/dL (0.0-0.4); BILIRUBIN,TOTAL 0.4 mg/dL (0.2-1.3); BLOOD UREA NITROGEN 19 mg/dL (7-20); CALCIUM 8.9 mg/dL (8.4-10.2); CARBON DIOXIDE 27 mmol/L (22-30); CHLORIDE 101 mmol/L (98-107); CREATINE KINASE 71 U/L (30-135); GLUCOSE 238 mg/dL (75-110); POTASSIUM 4.7 mmol/L (3.6-5.0); TOTAL PROTEIN 6.3 g/dL (6.3-8.2)
[2020-05-05 09:10] LABS: ACETAMINOPHEN < 10 ug/mL (10-30); ALCOHOL < 10 mg/dL (NONE DETECTED); SALICYLATE < 1.0 mg/dL (2.0-20.0)
[2020-05-05] MEDS ORDERED: LEVETIRACETAM 1000 MG/NACL-ISO 1,000 MG/100 ML RTUPB IV ONE (09:10)
[2020-05-05] MEDS ORDERED: MANNITOL 500 ML IV ONE (09:11)
[2020-05-05 09:18] LABS: URINE AMPHETAMINES SCREEN NEGATIVE; URINE BARBITURATES SCREEN NEGATIVE; URINE BENZODIAZEPINES SCREEN NEGATIVE; URINE COCAINE SCREEN NEGATIVE; URINE MARIJUANA (THC) SCREEN NEGATIVE; URINE METHADONE SCREEN NEGATIVE; URINE PHENCYCLIDINE SCREEN NEGATIVE
[2020-05-05 09:27] LABS: NT PRO BNP 233 pg/mL (<125); TROPONIN I < 0.012 ng/mL
[2020-05-05] MEDS ORDERED: PROPOFOL 1,000 MG/100 ML INFUS..BTL IV PRN (09:29)
--- NOTE | 2020-05-05 09:29 | RADIOLOGY REPORT (SQ) ---
EXAM DESCRIPTION: CT HEAD WITHOUT IMAGES COMPLETED DATE/TIME: 05/05/2020 9:13 am REASON FOR STUDY: unresponsive COMPARISON: 05/26/2017. TECHNIQUE: Axial images acquired through the brain without intravenous contrast. Images reviewed wi th bone, brain and subdural windows. Images stored on PACS. All CT scanners at this facility use dose modulation, iterative reconstruction, and/or weight based d osing when appropriate to reduce radiation dose to as low as reasonably achievable (ALARA). [facility]: Dose Right [facility]: [employer]Care [facility]: Dose Right [facility]: Teradose 4D [facility]: [employer] RADIATION DOSE: CT Rad equipment meets quality standard of care and radiation dose reduction techniq ues were employed. CTDIvol: 53.2 mGy. DLP: 1635 mGy-cm. mGy. LIMITATIONS: Motion artifact necessitating repeats. FINDINGS: VENTRICLES: Left lateral ventricle is flattened by mass-effect. Right lateral ventricle A A is mildly dilated. Effacement of the 3rd ventricle. CEREBRUM: Large left frontoparietal parenchymal hematoma measures at least 10 cm. Regional edema wit h mass effect as above. There is sajv-jk-wcpyj shift of just under 2 cm. CEREBELLUM: No mass effect. No hemorrhage. No alteration of density. No evidence for acute infarct ion. EXTRAAXIAL SPACES: No fluid collections. ORBITS AND GLOBE: Symmetrical contour of the globes. CALVARIUM: No depressed skull fracture. PARANASAL SINUSES: No air-fluid level. SOFT TISSUES: No hematoma. IMPRESSION: 1. Large left cerebral hematoma with regional edema, mass effect and significant icly-rd-kpbqf shift. Pertinent positive or negative findings of the imaging study reported as a CRITICAL EXAM to CAROLINA BROWNING MD at09:20 on 05/05/2020. Category of Critical Exam: Acute intracranial hemorrhage. TECHNICAL DOCUMENTATION: JOB ID: [id number] [facility] [id number]: Final reports with documentation of one or more dose reduction techniques (e.g., Automate d exposure control, adjustment of the mA and/or kV according to patient size, use of iterative recons truction technique) 2010 [employer]- All Rights Reserved Reading location - IP/workstation name: [email or web address]
[2020-05-05] MEDS ORDERED: ETOMIDATE INJ/PF 20 MG/10 ML SDV IV ONE ×2 (09:30→10:14)
[2020-05-05] MEDS ORDERED: SUCCINYLCHOLINE CHLORIDE INJ 200 MG/10 ML VIAL IV ONE (09:31)
--- NOTE | 2020-05-05 09:32 | RADIOLOGY REPORT (SQ) ---
EXAM DESCRIPTION: CT CERVICAL SPINE WITHOUT IMAGES COMPLETED DATE/TIME: 05/05/2020 9:17 am REASON FOR STUDY: unresponsive COMPARISON: None. TECHNIQUE: Axial images acquired through the cervical spine without intravenous contrast. Images re viewed with lung, soft tissue and bone windows. Reconstructed coronal and sagittal MPR images review ed. Images stored on PACS. All CT scanners at this facility use dose modulation, iterative reconstruction, and/or weight based d osing when appropriate to reduce radiation dose to as low as reasonably achievable (ALARA). [facility]: Dose Right [facility]: CareDose [facility]: Dose Right [facility]: Teradose 4D [facility]: [employer] RADIATION DOSE: CT Rad equipment meets quality standard of care and radiation dose reduction techniq ues were employed. CTDIvol: 20.8 mGy. DLP: 375 mGy-cm. mGy. LIMITATIONS: Motion artifact. This is up to moderate. FINDINGS: ALIGNMENT: Mild anterolisthesis at C4-5 looks degenerative. MINERALIZATION: Normal. VERTEBRAL BODIES: No fractures or dislocation. DISCS: Disc space narrowing which is most pronounced in the lower segments. Particularly C5-6 where there are associated prominent osteophytes. FACETS, LATERAL MASSES, POSTERIOR ELEMENTS: Multilevel facet arthropathy including joint space narrow ing and sclerosis. At the C2-3 level on the left, there are erosions or cysts along the left facets. No fracture detected however. HARDWARE: None in the spine. VISUALIZED RIBS: No fractures. LUNG APICES AND SOFT TISSUES: No significant or acute findings. OTHER: No other significant finding. IMPRESSION: 1. Arthritic changes as above. Includes degenerative disc disease and facet arthropathy. 2. No fracture or worrisome bone lesion or suspicious malalignment. TECHNICAL DOCUMENTATION: JOB ID: [id number] Quality ID # [id number]: Final reports with documentation of one or more dose reduction techniques (e.g., Au tomated exposure control, adjustment of the mA and/or kV according to patient size, use of iterative reconstruction technique) 2010 [employer]- All Rights Reserved Reading location - IP/workstation name: [email or web address]
[2020-05-05] MEDS ORDERED: MIDAZOLAM 2 MG/2 ML INJ IV ONE (09:34)
--- NOTE | 2020-05-05 09:36 | RADIOLOGY REPORT (SQ) ---
EXAM DESCRIPTION: CHEST SINGLE VIEW IMAGES COMPLETED DATE/TIME: 05/05/2020 9:20 am REASON FOR STUDY: unresponsive COMPARISON: 09/30/2017. FINDINGS: One-view chest AP portable upright. Low lung volumes with chronic right basilar scar. Stable exam without acute infiltrate suggested. N o pneumothorax. No gross fracture. TECHNICAL DOCUMENTATION: JOB ID: [id number] Reading location - IP/workstation name: [email or web address]
--- NOTE | 2020-05-05 09:59 | RADIOLOGY REPORT (SQ) ---
EXAM DESCRIPTION: CHEST SINGLE VIEW IMAGES COMPLETED DATE/TIME: 05/05/2020 9:44 am REASON FOR STUDY: tube placement COMPARISON: 05/05/2020. EXAM PARAMETERS: NUMBER OF VIEWS: One view. TECHNIQUE: Single frontal radiographic view of the chest acquired. RADIATION DOSE: NA LIMITATIONS: None. FINDINGS: LUNGS AND PLEURA: Suboptimal inspiration. Mild basilar scarring. No infiltrates, masses or pneumothorax. No pleural effusion. MEDIASTINUM AND HILAR STRUCTURES: No masses. Contour normal. HEART AND VASCULAR STRUCTURES: Heart normal in size. Normal vasculature. BONES: No acute findings. Degenerative changes in the spine. HARDWARE: Endotracheal tube, tip located 3 cm proximal to the edie. Nasogastric tube, tip located in stomach. Bilateral shoulder prostheses. OTHER: No other significant finding. IMPRESSION: SATISFACTORY POSITION OF THE ENDOTRACHEAL TUBE AND NASOGASTRIC TUBE. OTHERWISE NO OLIVA Ankit. TECHNICAL DOCUMENTATION: JOB ID: [id number] 2010 [employer]- All Rights Reserved Reading location - IP/workstation name: [email or web address]
--- NOTE | 2020-05-05 10:07 | ER Document Report ---
Entered by TORIBIO VELEZ SCRIBE 05/05/20 0854 Acting as scribe for:CAROLINA SCHROEDER MD ED General - General Stated Complaint: UNRESPONSIVE Mode of Arrival: Medic Information source: Emergency Med Personnel Notes: This 65 year old female patient brought in by EMS from home presents to the ED today for evaluation after being found unresponsive with vomitus on herself by family around 0800 this morning. According to EMS, family reports that the patient was last seen walking around the house at 1430 yesterday afternoon via camera. Patient reportedly had a friend over the house last night and possibly consumed ETOH and some recreational drugs per family. Upon EMS arrival, patient had sonorous respirations and was only responsive to deep painful stimuli. Vitals signs were stable with BGL 198; no other interventions were done. Nursing reports that the patient had x2 episodes of emesis while with EMS. Per EMS, patient has a history of type 2 diabetes mellitus, hypertension, and depression and takes Metformin and Trazodone. TRAVEL OUTSIDE OF THE [place] IN LAST 30 DAYS: No - Related Data Allergies/Adverse Reactions: No Known Allergies Allergy (Verified 05/26/17 07:48) Past Medical History - General Information source: Emergency Med Personnel, [facility] Records - Social History Smoking Status: Unknown if Ever Smoked Frequency of alcohol use: Occasional Lives with: Alone Family History: Reviewed & Not Pertinent, COPD - Past Medical History Cardiac Medical History: Reports: Hx Hypertension Endocrine Medical History: Reports: Hx Diabetes Mellitus Type 2 - pre-diabetes Psychiatric Medical History: Reports: Hx Bipolar Disorder, Hx Depression Past Surgical History: Reports: Hx Orthopedic Surgery - bilat knee, shoulder Review of Systems - Review of Systems -: Yes ROS unobtainable due to patient's medical condition - Unresponsive Physical Exam - Vital signs Vitals: Resp Pulse Ox 17 100 05/05/20 08:33 05/05/20 08:33 - General General appearance: Unresponsive - to noxious stimuli In distress: None - HEENT Notes: Head: Normocephalic, Atraumatic Eyes: Normal Pupils: Midline and equal, 3mm, mildly reactive - Respiratory Respiratory status: No respiratory distress - Snoring respirations Chest status: Nontender Breath sounds: Normal Chest palpation: Normal - Cardiovascular Rhythm: Regular Heart sounds: Normal auscultation, S1 appreciated, S2 appreciated Murmur: No Friction rub: No Gallop: None auscultated - Abdominal Inspection: Obese Distension: No distension Bowel sounds: Normal Tenderness: Nontender - Abdomen soft Organomegaly: No organomegaly - Back Back: Normal, Nontender - Extremities General lower extremity: No: Edema Shoulder: Other - Surgical scar, left shoulder Knee: Other - Surgical scars, bilateral knees - Neurological [place] Coma Scale Eye Opening: None [place] Coma Scale Verbal: None Tom Coma Scale Motor: None [place] Coma Scale Total: 3 - Psychological Associated symptoms: Other - Unable to assess due to patient's medical condition - Unresponsive - Skin Skin Temperature: Warm Skin Moisture: Dry Skin Color: Normal Course - Re-evaluation Re-evalutation: 05/05/20 08:40 Patient remains unresponsive to noxious stimuli despite Narcan administration x2. 05/05/20 09:[address] Joel Melgoza who reports an acute intracranial hemorrhage on CT of the head. Lulu Sheikh, development advisor made aware of need for transfer and is pushing the images/demographics to [facility]. Transfer pending at this time. 05/05/20 09:54 Patient remained unresponsive after Narcan administered and therefore patient was sent to the CT scan for head CT cervical spine CT. We learned from CT scan that patient has a large intraparenchymal left frontal parietal hemorrhage with a 2cm left to right midline shift. Patient was transported back to the emergency department where patient was intubated administered IV TXA, IV mannitol, IV Keppra,. Patient is on a propofol drip at this time. Patient also received 10 mg IV Versed. Post intubation chest x-ray shows ET tube in place NG tube tip below the diaphragm. And no complications from the intubation no pneumothorax no infiltrate noted on exam. - Vital Signs Vital signs: Temp Pulse Resp BP Pulse Ox 97.5 F 14 134/59 H 100 05/05/20 08:56 05/05/20 09:51 05/05/20 09:51 05/05/20 09:48 Current current vital signs shows a heart rate of 68, O2 sat 100% respiratory rate 16 blood pressure 134/59. - Laboratory Result Diagrams: 05/05/20 08:30 05/05/20 08:30 Laboratory results interpreted by me: 05/05/20 05/05/20 05/05/20 08:30 08:30 08:30 Hgb 11.6 L Hct 34.2 L RDW 14.4 H Lymph % (Auto) 8.4 L Seg Neutrophils % 86.8 H D-Dimer 2.13 H Sodium 136.1 L Glucose 238 H NT-Pro-B Natriuret Pep Urine Glucose (UA) Urine Ketones Salicylates < 1.0 L Acetaminophen < 10 L 05/05/20 05/05/20 08:30 08:42 Hgb Hct RDW Lymph % (Auto) Seg Neutrophils % D-Dimer Sodium Glucose NT-Pro-B Natriuret Pep 233 H Urine Glucose (UA) 50 H Urine Ketones TRACE H Salicylates Acetaminophen - Diagnostic Test Radiology reviewed: Image reviewed, Reports reviewed Radiology results interpreted by me: 05/05/20 09:[address] 05/05/20 08:48 IMPRESSION: 1. Large left cerebral hematoma with regional edema, mass effect and significant [id number] shift. Pertinent positive or negative findings of the imaging study reported as a CRITICAL EXAM to CAROLINA SCHROEDER MD at09:20 on 05/05/2020. Category of Critical Exam: Acute intracranial hemorrhage. Cervical Spine CT 05/05/20 08:49 IMPRESSION: 1. Arthritic changes as above. Includes degenerative disc disease and facet arthropathy. 2. No fracture or worrisome bone lesion or suspicious malalignment. CT scan shows a large left cerebral hematoma with regional edema mass-effect significant left to right shift also CT scan of cervical spine shows arthritic changes degenerative disc disease no fracture 05/05/20 09:58 Chest x-ray prior to intubation showed no acute process Chest x-ray post intubation shows ET tube in place with the NG tube tip below the diaphragm on the left and no infiltrate noted no pneumothorax. - EKG Interpretation by Me Additional EKG results interpreted by me: 05/05/20 09:58 Twelve-lead EKG shows a sinus bradycardia rate of 53 consider anterior septal infarct with poor R wave progression until one gets to V4 NJ interval within normal range QRS within normal range and QT interval within normal interval range. Left axis deviation no acute ST elevation to suggest STEMI. - Consults Dr. Ender Simmons, Neurologist at [facility] Time consulted: 09:45 - Case discussed with Dr. Jenkins neurologist at [facility] who accepted patient plan is to have patient transported by air transport if that is available. Patient is to be transported to the ED emergency department so they can immediately get a CTA as quickly as possible. Reason for consultation: 05/05/20 09:45 Acute intracranial hemorrhage Procedures - Intubation Orotracheal Time of Intubation: 09:27 Airway evaluation: Normal anatomy Mallampati Classification: Class 3 Medications: Etomidate, Succinylcholine, Diprivan Intubation method: Orotracheal Equipment used: Glidescope ETT size: 8.0 ETT secured at: Gums ETT secured at (cm): 22 Breath Sounds after Intubation: Equal End tidal CO2 confirmed: Yes Intubation Complications: No complications Critical Care Note - Critical Care Note Total time excluding time spent on procedures (mins): 55 - managing patient with unresponsive state a large intra-parenchymal bleed and hypertension. Coordinating with transfer department discussing with neurologist at the receiving facility. Discharge - Discharge Clinical Impression: Cerebral parenchymal hemorrhage Condition: Critical Disposition: [facility] ED Alteplase Inc/Exc Criteria - Date/Time patient last known well: Date/Time: 14:30 05/04/2020 - Date/Time patient arrived in ED: _: 08:19 05/05/2020 - Inclusion Criteria: 1: Patient presented to ED within 3 hours of acute ischemic stroke symptom onset? -: No 2: Did baseline CT exclude intracranial hemorrhage and/or other risk factors? -: No 3: Is the age of the patient 18 years of age or greater? -: Yes : If any of the above questions are answered "NO" then stop, patient is not a candidate for Alteplase, : If all of the above questions are answered "YES" then continue with Exclusion Criteria. - Exclusion Criteria: 1: Is there evidence of intracranial hemorrhage on baseline CT? 2: Is there suspicion of subarachnoid hemorrhage (even if CT negative)? 3: Is there a history of serious head trauma, recent previous stroke or WA within 3 months? 4: Does the patient have a clinical presentation consistent with WA or post-WA pericarditis? 5: Is there history of intracranial hemorrhage? 6: On repeated measurement is Systolic BP greater than 185mmHg or Diastolic BP greater that 110 mmHg and is aggressive treatment needed to reduce blood pressure to these limits (e.g. constant infusion of an anti-hypertensive)? 7: Did the patient awake with stroke symptoms? 8: Has the patient had a lumbar puncture or an arterial puncture at a non- compressile site within 7 days? 9: With in the last 14 days did the patient have surgery or major trauma? 10: Is the patient or less than 2 weeks? 11: Was there any active bleeding or acute trauma? 12: Does the patient have intracranial neoplasm, arteriovenous malformation or aneurysm? 13: Does the patient have abnormal glucose (less than 50 or greater than 400mg/dl)? Record glucose in Comment. 14: Patient has rapidly improving symptoms at the time Alteplase is to be Administered. 15: Does the patient have any risks for bleeding, including but not limited to: a.: Current use of Coumadin with PT greater than 15 seconds or INR greater than 1.7. b.: Current use of Pradaxa (Dabigatran). c.: Heparin administereed within the past 48 hours and PTT elevated. d.: Platelet count less than 100,000/mm. e.: Major surgery or serious trauma within 14 days. f.: Gastrointestinal or gynecological urinary bleeding within 14 days. g.: Myocardial Infarction (WA) within 3 months. : If the answer to any of the above questions is "YES" then stop, the patient is not a candidate for Alteplase. : If the answer to all of the above questions is "NO" then the patient may be eligible for the Administration of Alteplase. : If the patient is noted to have seizure activity at onset of Stroke symptoms; Consult Neurologist for further evaluation. - The patient is: -: Included and is eligible to receive Alteplase. *Initiate bed placement at higher level of care* Reviewed risks & benefits of thrombolytic therapy: I have reviewed the risks and benefits of thrombolytic therapy with the patient and/or his/her family. -: Excluded and not eligible to receive Alteplase for the above exclusions. -: Excluded and not eligible to receive Alteplase for other reasons (specify in comments): - Diagnosis of TIA: -: Patient presented with transient symptoms that are now resolved and no other neurologic findings are currently present. List symptoms in comments. -: Patient is NOT a candidate for tPA. -: ____(put name in comment) has been consulted for admission and continued evaluation of risk factor assessment. ED NIH Stroke Scale - NIH Stroke Scale *: 1. NIH scale should be completed with appropriate accompanying assessment tools. *: 2. The NIH should reflect what the patient is capable of doing and should not be coached by the clinician. 1a. Level of Consciousness: 0=Alert;keenly responsive -: 1=Drowsy -: 2=Obtunded -: 3=Coma/unresponsive or reflex to noxious stimuli. 1a. Responses: 3 1b. Orientation Questions: a. What month is it? -: b. How old are you? -: 0=Answers both questions correctly. -: 1=Answers one question correctly or patient is intubated or has orotracheal trauma. -: 2=Answers neither question correctly. 1c. Response to commands: a. Open and close eyes? -: b. Poolroom/Poolhall Manager and release hand? -: Credit is given despite weakness. Demonstration of task is permitted. Substitute command if hands cannot be used. -: 0=Performs both tasks correctly -: 1=Performs one task correctly -: 2=Performs neither task correctly 1c. Responses: 2 2. Gaze: Establish eye contact and instruct patient to "Follow my finger" -: 0=Normal -: 1=Partial gaze palsy. Gaze is abnormal in one or both eyes, but where forced deviation or total gaze paresis is not present. -: 2=Forced deviation or total gaze paresis. 2. Responses: 2 3. Visual Lopez: Sees fingers in all four quadrants. -: 0=No visual loss. -: 1=Partial hemianopsia. -: 2=Complete hemianopsia. -: 3=Bilateral hemianopsia (including Cortical blindness) 4. Facial Movement: Instruct patient to: -: a. Show me your teeth -: b. Raise your eyebrows -: c. Close your eyes -: d. Smile -: 0=Normal symmetrical movement -: 1=Minor paralysis (flattened nasolabial fold, asymmetry on smiling). -: 2=Partial paralysis (total or near total paralysis of lower face). -: 3=Complete paralysis of upper and lower face 4. Responses: 3 5. Motor functions (left arm): Alternate sides and extend each arm with palms down (90 degrees if sitting or 45 degrees for supine). -: 0=No drift;limb holds for full 10 seconds. -: 1=Drift; limb holds but drifts down before full 10 seconds, but does not hit bed. -: 2=Some effort against gravity; limb cannot get to or maintain position. -: 3=No effort against gravity; limb falls. -: 4=No movement. -: UN=Amputation, joint fusion, explain in comments. 5. Responses (left arm): 4 5. Motor Functions (right arm): Alternate sides and extend each arm with palms down (90 degrees if sitting or 45 degrees for supine). -: 0=No drift;limb holds for full 10 seconds. -: 1=Drift; limb holds but drifts down before full 10 seconds, but does not hit bed. -: 2=Some effort against gravity; limb cannot get to or maintain position. -: 3=No effort against gravity; limb falls. -: 4=No movement. -: UN=Amputation, joint fusion, explain in comments. 5. Responses (right arm): 4 6. Motor Functions (left leg): With patient lying supine, alternate sides and extend each leg (30 degrees always while supine). -: 0=No drift, leg holds position for full 5 seconds -: 1=Drift; leg falls before full 5 seconds but does not hit bed. -: 2=Some effort against gravity, leg falls to bed but some effort against gravity. -: 3=No effort against gravity, leg falls to bed immediately. -: 4=No movement. -: UN=Amputation, joint fusion; explain in comments. 6. Responses (left leg): 4 6. Motor Functions (right leg): With patient lying supine, alternate sides and extend each leg (30 degrees always while supine). -: 0=No drift, leg holds position for full 5 seconds -: 1=Drift; leg falls before full 5 seconds but does not hit bed. -: 2=Some effort against gravity, leg falls to bed but some effort against gravity. -: 3=No effort against gravity, leg falls to bed immediately. -: 4=No movement. -: UN=Amputation, joint fusion; explain in comments. 6. Responses (right leg): 4 7. Limb Ataxia: With eyes open instruct patient to: -: a. "Touch your finger to your nose". -: b. "Touch your heel to your ballard" -: 0=Absent -: 1=Present in one limb. -: 2=Present in two limbs. -: UN=Amputation or joint fusion; explain in comments. 7. Responses: 0 8. Sensory: Test sensation using pinprick or noxious stimuli. Test as many body parts as possible. -: 0=Normal;no sensory loss -: 1=Mile to moderate sensory loss (patient feels pin prick but is less sharp on affected side). -: 2=Severe or total sensory loss. 8. Responses: 2 9. Best Language: Instruct patient to: -: a. "Describe what you see in this picture." -: b. "Name the items in this picture." -: c. "Read these sentences." -: 0=No aphasia, normal -: 1=Mild to moderate aphasia. -: 2=Severe aphasia -: 3=Mute, global aphasia, no usable speech or auditory comprehension. 9. Responses: 3 10. Articulation, Dysarthia: Instruct patient to: -: "Read these words" or "Repeat these words" -: 0=Normal -: 1=Mild to moderate; patient may slur some words but can be understood without difficulty. -: 2=Severe; patients speech so slurred as to be unintelligible in the absence of dysphasia. -: UN=Intubated or other physical barrier, explain in comments. 11. Extinction or inattention: 0=No abnormality -: 1= Visual, tactile, auditory, spatial, or personal inattention or extinction to bilateral simulation in one or the sensory modalities. -: 2=Profound wing-inattention or wing-inattention to more than one modality; does not recognize own hand. Total Score: 31 Notes: Patient unresponsive and did not respond to any stimuli or could not cooperate with any command that was given to her. I personally performed the services described in the documentation, reviewed and edited the documentation which was dictated to the scribe in my presence, and it accurately records my words and actions.
[2020-05-05 10:20] VITALS: BP 147/63
--- NOTE | 2020-05-05 12:42 | EKG REPORT ---
SEVERITY:- ABNORMAL ECG - SINUS BRADYCARDIA CONSIDER ANTEROSEPTAL INFARCT : Confirmed by: Roman Agrawal MD 05-May-2020 12:41:43
== END 2020-05-05 10:33 | disposition short-term general hospital (02) ==
LOC: ER 08:19
DX: I61.9 Nontraumatic intracerebral hemorrhage, unspecified (principal); I10 Essential (primary) hypertension; M50.30 Other cervical disc degeneration, unspecified cervical region; R41.82 Altered mental status, unspecified; R11.10 Vomiting, unspecified; R06.83 Snoring; R00.1 Bradycardia, unspecified; E11.9 Type 2 diabetes mellitus without complications; F32.9 Major depressive disorder, single episode, unspecified; Z79.84 Long term (current) use of oral hypoglycemic drugs; Z79.899 Other long term (current) drug therapy
CPT/HCPCS: 93005; 96376; 99291; 96361; 51702; 96375; 96365; 96368; 36415; 87040; 87086; 80307 ×4; 82140; 82550; 83605; 83690; 84443; 85025; 85610; 85730; 87077; 80053; 81001; 84484; 87186; 85379; 82803; 87150 ×26; 83880; 71045; 70450; 72125; 94660; 93010; 31500; J2250; J2704; J2310 ×2; J0330; J2150; J7030; J3490 ×2; J1953; 94002